=== PATIENT | male | born 1995 | race Caucasian/White ===

== ENCOUNTER 2018-06-27 20:23 | Emergency (ER) | payer BC, OTHER ==
--- NOTE | 2018-06-27 20:37 | PDOC ---
History of Present Illness - General History Source: Patient Exam Limitations: No Limitations - History of Present Illness Initial Comments: 06/27/18 20:35 A portion of this note was documented by scribe services under my direction. I have reviewed the details of the note, within reason, and agree with the documentation. The case summary and management plan written by me. Assessment and plan: This is a 23-year-old male who comes in 3 days' post being bit by his dog. Patient's dog's immunizations are up-to-date and including his rabies vaccines. Patient has a small abrasion and a relatively large crush injury as a result of the dog bite all of which appear to be healing normally there is no evidence of infection at this time. Patient was reassured and discharged told to follow-up with his primary care doctor as needed <Echo Singh I - Last Filed: 06/27/18 20:34> - History of Present Illness Initial Comments: 06/27/18 20:43 Patient is a 23 year old male with no significant past medical history who presents to the ED with complaints of dog bite that occured x3 days ago. Patient reports getting bitten by a dog on his left upper arm on tuesday. He reports immediately cleaning the bite after the incident with water and peroxide before applying neosporin and bandaging the wound. Patient reports doing research on dog bite when he states he saw that it is spring to have the bite seen and evaluated by a physician, prompting him to go to the urgent care center for further evaluation. He reports being advised to come into the ED for further evaluation after being told the dog bite could be infected based on the appearance. 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 Denies chest pain, Sob. Denies nausea, vomiting. Denies fevers, chills. Denies contact with sick individuals, out of states travelling. Denies diarrhea, constipation, Denies dysuria, hematuria. Denies any other symptoms. Allergies: NKDA Social history: Lives with mother. No smoking. No alcohol. No illicit drugs. Surgical history: None PMD: None Adult ROS General: No fevers or chills, no weakness, no weight loss HEENT: No change in vision. No sore throat, No ear pain Cardiovascular: No chest pain or shortness of breath Respiratory:No cough, or wheezing. Gastrointestinal: No nausea, vomiting, diarrhea or constipation, No rectal bleeding Genitourinary: No dysuria, hematuria, or frequency Musculoskeletal: +Left upper arm pain. No joint or muscle swelling Neurologic: No headache, vertigo, dizziness or loss of consciousness Psychiatric: No depression Skin: No rashes or easy bruising Endocrine: No increased thirst or abnormal weight change Allergic: No skin or latex allergy All other systems reviewed and normal Basic PE GENERAL: The patient is awake, alert, and fully oriented, in no acute distress. HEAD: Normal with no signs of trauma. EYES: Pupils equal, round and reactive to light, extraocular movements intact, sclera anicteric, conjunctiva clear. EXTREMITIES: +Left upper arm a large crush injury with ecchymosis and mild swelling. +Small abrasion within crush injury that does not have any associated increase tenderness erythema. No discharge or evidence of infection. Normal range of motion. NEUROLOGICAL: Normal speech, normal gait. PSYCH: Normal mood, normal affect. SKIN: Warm, Dry, normal turgor, no rashes or lesions noted. <Joe Pierce - Last Filed: 06/27/18 20:44> - General Chief Complaint: Bite Stated Complaint: BIT BY OWN DOG ON TUESDAY Time Seen by Provider: 06/27/18 20:25 Past History - Immunization History Immunization Up to Date: Yes - Suicide/Smoking/Psychosocial Hx Smoking Status: No Smoking History: Never smoked Number of Cigarettes Smoked Daily: 0 <Echo Singh I - Last Filed: 06/27/18 20:34> <Joe Pierce - Last Filed: 06/27/18 20:44> - Past Medical History Allergies/Adverse Reactions: Allergies Allergy/AdvReac Type Severity Reaction Status Date / Time No Known Allergies Allergy Verified 06/27/18 20:41 Home Medications: Ambulatory Orders No Home Medications 0 dose .ROUTE UTDICT 07/24/12 *DC/Admit/Observation/Transfer - Discharge Dispostion Decision to Admit order: No <Echo Singh I - Last Filed: 06/27/18 20:34> - Attestations Scribe Attestion: 06/27/18 20:44 Documentation prepared by Joe Pierce, acting as medical records auditor for Echo Singh MD. <Joe Pierce - Last Filed: 06/27/18 20:44> Diagnosis at time of Disposition: Dog bite of extremity - Discharge Dispostion Disposition: HOME Condition at time of disposition: Stable - Patient Instructions Printed Discharge Instructions: DI for Animal Bites Additional Instructions: Continue to put a little bacitracin or antibiotic ointment on it on a daily basis. Otherwise it appears to be healing well and the bruising and swelling should resolve within the next week. Return to the emergency department immediately with ANY new, persistent or worsening symptoms. Continue any medications as previously prescribed by your physician. You should follow up with your primary doctor as soon as possible regarding today's emergency department visit. . Please make sure your doctor reviews the results of your emergency evaluation. Thank you for coming to the Emergency Department today for your care. It was a pleasure to see you today. Please note that your evaluation is INCOMPLETE until you follow-up with your doctor.
[2018-06-27 20:50] VITALS: BP 141/90; PULSE 85; TEMP 98.5; BMI 21.7
== END 2018-06-27 20:51 | disposition home or self-care (01) ==
LOC: FER 20:23
DX: S41.152A Open bite of left upper arm, initial encounter (principal); W54.0XXA Bitten by dog, initial encounter; Y92.89 Other specified places as the place of occurrence of the external cause; Y93.9 Activity, unspecified
CPT/HCPCS: 99281-25

== ENCOUNTER 2021-06-20 09:39 | Emergency (ER) | payer OTHER ==
[2021-06-20 09:47] VITALS: BP 151/93; PULSE 94; TEMP 97.9; BMI 24.3
== END 2021-06-20 10:25 | disposition home or self-care (01) ==
LOC: FER 09:39
DX: R42 Dizziness and giddiness (principal)
CPT/HCPCS: 93005; 99283-25

== ENCOUNTER 2021-06-28 16:14 | Emergency (ER) | payer OTHER ==
[2021-06-28 16:18] VITALS: BP 154/95; PULSE 129; TEMP 97.7; BMI 24.3
== END 2021-06-28 17:15 | disposition home or self-care (01) ==
LOC: FER 16:14
DX: Z48.00 Encounter for change or removal of nonsurgical wound dressing (principal); W54.0XXA Bitten by dog, initial encounter
CPT/HCPCS: 99281-25

== ENCOUNTER 2021-07-03 19:58 | Emergency (ER) | payer OTHER ==
[2021-07-03 20:19] VITALS: BP 140/96; PULSE 86; TEMP 98; BMI 24.0
== END 2021-07-03 22:06 | disposition home or self-care (01) ==
LOC: FER 19:58
DX: F41.9 Anxiety disorder, unspecified (principal)
CPT/HCPCS: 99283-25

== ENCOUNTER 2021-07-04 14:38 | Emergency (ER) | payer OTHER ==
[2021-07-04] MEDS ORDERED: hydrOXYzine PAMOATE 25 MG CAPSULE (FP) PO ONE ×2 (14:57→15:13)
[2021-07-04 15:24] VITALS: BP 116/42; PULSE 70; TEMP 98; BMI 25.1
== END 2021-07-04 17:01 | disposition home or self-care (01) ==
LOC: FER 14:38
DX: F41.9 Anxiety disorder, unspecified (principal)
CPT/HCPCS: 99283-25

== ENCOUNTER 2021-07-06 16:27 | Emergency (ER) | payer OTHER ==
[2021-07-06 16:40] VITALS: BP 143/91; PULSE 91; TEMP 98.4; BMI 24.2
[2021-07-06] MEDS ORDERED: KETOROLAC TROMETHAMINE 60 MG/2 ML VIAL IM ONE (17:43)
[2021-07-06] MEDS ORDERED: ACETAMINOPHEN/CAFFEINE/BUTALBITAL 1 TAB PO ONE (17:43)
[2021-07-06] MEDS ORDERED: KETOROLAC TROMETHAMINE 60 MG/2 ML VIAL ONE (17:53)
[2021-07-06] MEDS ORDERED: ACETAMINOPHEN/CAFFEINE/BUTALBITAL 1 TAB ONE (17:55)
== END 2021-07-06 19:04 | disposition home or self-care (01) ==
LOC: FER 16:27
PROC: 3E023GC Introduction of Other Therapeutic Substance into Muscle, Percutaneous Approach (ICD-10-PCS; principal; 2021-07-06)
DX: R51.9 Headache, unspecified (principal)
CPT/HCPCS: 99284-25

== ENCOUNTER 2021-08-13 10:19 | Emergency (ER) | payer OTHER ==
[2021-08-13 10:33] VITALS: BP 145/92; PULSE 92; TEMP 98.2; BMI 23.8
[2021-08-13] MEDS ORDERED: METOCLOPRAMIDE HCL 10 MG TABLET (FP) PO ONE ×2 (11:03→11:05)
== END 2021-08-13 11:40 | disposition home or self-care (01) ==
LOC: FER 10:19
DX: G44.209 Tension-type headache, unspecified, not intractable (principal)
CPT/HCPCS: 99283-25; C9803; U0003; U0005

== ENCOUNTER 2021-08-14 20:12 | Emergency (ER) | payer OTHER | END 2021-08-14 22:42 | disposition home or self-care (01) | LOC: FER 20:12 | DX: R51.9 Headache, unspecified (principal); F41.9 Anxiety disorder, unspecified; R09.89 Other specified symptoms and signs involving the circulatory and respiratory systems | CPT/HCPCS: 99281-25 ==

== ENCOUNTER 2021-08-16 06:50 | Emergency (ER) | payer OTHER ==
[2021-08-16 06:57] VITALS: BP 139/90; PULSE 96; TEMP 98.6; BMI 23.8
[2021-08-16 08:59] LABS: HEMOGLOBIN 14.9 GM/dl (11.7-16.9); MCH 29.4 pg (25.7-33.7); MCHC 33.8 g/dl (32.0-35.9); MEAN CELL VOLUME 86.8 fl (80-96); PLATELET COUNT 297 10^3/uL (134-434); RBC 5.07 M/mm3 (4.00-5.60); RDW 12.6 % (11.9-15.9)
== END 2021-08-16 09:23 | disposition home or self-care (01) ==
LOC: FER 06:50
DX: R51.9 Headache, unspecified (principal); R07.89 Other chest pain; R19.7 Diarrhea, unspecified
CPT/HCPCS: 36415; 85027; 99283-25

== ENCOUNTER 2021-08-17 18:47 | Emergency (ER) | payer OTHER ==
[2021-08-17 19:08] VITALS: BP 145/71; PULSE 88; TEMP 98.1; BMI 26.8
== END 2021-08-17 19:35 | disposition home or self-care (01) ==
LOC: FER 18:47
DX: L02.31 Cutaneous abscess of buttock (principal)
CPT/HCPCS: 99283-25

== ENCOUNTER 2021-08-21 17:09 | Emergency (ER) | payer OTHER ==
[2021-08-21 17:39] VITALS: BP 134/85; PULSE 102; TEMP 99.6; BMI 26.7
[2021-08-21 18:29] LABS: BASO % 1.8 % (0-2.0); HEMATOCRIT 45.1 % (35.4-49); HEMOGLOBIN 15.5 GM/dl (11.7-16.9); LYMPH % 16.1 % (8-40); MCH 29.9 pg (25.7-33.7); MCHC 34.4 g/dl (32.0-35.9); MEAN PLT VOLUME 8.6 fl (7.5-11.1); MONO % 4.8 % (3.8-10.2); NEUT % 75.3 % (42.8-82.8); PLATELET COUNT 297 10^3/uL (134-434); RBC 5.19 M/mm3 (4.00-5.60); RDW 12.4 % (11.9-15.9); WHITE BLOOD COUNT 13.4 K/mm3 (4.0-10.8)
[2021-08-21 18:37] LABS: ALBUMIN 5.4 g/dl (3.4-5.0); BILIRUBIN,TOTAL 1.3 mg/dl (0.2-1); CALCIUM 10.6 mg/dl (8.5-10); CREATININE 0.8 mg/dl (0.55-1.3); TOT PROT 8.2 g/dl (6.4-8.2)
== END 2021-08-21 20:14 | disposition home or self-care (01) ==
LOC: FER 17:09
DX: R10.13 Epigastric pain (principal); F41.9 Anxiety disorder, unspecified
CPT/HCPCS: 36415; 76705-TC; 80053; 83690; 85025; 99284-25

== ENCOUNTER 2021-09-07 17:00 | Emergency (ER) | payer OTHER ==
[2021-09-07 17:35] VITALS: BP 143/85; PULSE 94; TEMP 98.3; BMI 26.7
== END 2021-09-07 17:39 | disposition home or self-care (01) ==
LOC: FER 17:00
DX: Z48.00 Encounter for change or removal of nonsurgical wound dressing (principal)
CPT/HCPCS: 99281-25

== ENCOUNTER 2024-04-03 16:13 | Emergency (ER) | payer OTHER ==
[2024-04-03 16:32] VITALS: BP 130/78; PULSE 103; RESP 20; TEMP 103; BMI 38.7
[2024-04-03] MEDS ORDERED: KETOROLAC TROMETHAMINE 30 MG/1 ML VIAL ONE (16:45)
[2024-04-03] MEDS: KETOROLAC TROMETHAMINE 15 MG/ML VIAL IM ONE (16:48)
== END 2024-04-03 18:04 | disposition home or self-care (01) ==
LOC: FER 16:13
PROC: 3E0133Z Introduction of Anti-inflammatory into Subcutaneous Tissue, Percutaneous Approach (ICD-10-PCS; principal; 2024-04-03)
DX: R50.9 Fever, unspecified (principal); R68.84 Jaw pain
CPT/HCPCS: 99284-25

== ENCOUNTER 2024-04-08 11:32 | Emergency (ER) | payer OTHER ==
[2024-04-08 11:41] VITALS: BP 142/95; PULSE 82; RESP 20; TEMP 98.5; BMI 32.3
== END 2024-04-08 12:23 | disposition home or self-care (01) ==
LOC: FER 11:32
DX: U07.1 COVID-19 (principal)
CPT/HCPCS: 99283-25